=== PATIENT | male | born 1980 | race Caucasian/White ===

== ENCOUNTER 2019-07-29 22:09 | Emergency (ER) | payer MEDICAID ==
[~2019-07-29] VITALS: Ht 175.3 cm; Wt 97.5 kg
[2019-07-29 22:16] VITALS: Ht 175.3 cm; Wt 97.5 kg
[2019-07-29 23:18] LABS: BASOPHIL % 0.2 % (0-2); PLATELET COUNT 219 x10^3mcL (130-400); RED CELL DISTRIBUTION WIDTH 12.8 % (11.5-14.5)
[2019-07-29 23:29] LABS: CALCIUM 8.9 mg/dL (8.5-10.1); CARBON DIOXIDE 27.4 mmol/L (21-32); CHLORIDE SERUM 103 mmol/L (98-107); CREATININE SERUM 0.9 mg/dL (0.7-1.3); GFR1 > 60 mL/min; GLUCOSE SERUM 120 mg/dL (74-106); POTASSIUM SERUM 3.5 mmol/L (3.5-5.1); SODIUM SERUM 141 mmol/L (136-145)
[2019-07-29 23:34] LABS: ALBUMIN 4.2 g/dL (3.4-5.0); ALKALINE PHOSPHATASE 67 U/L (46-116); ALT/SGPT 53 U/L (16-63); AST/SGOT 32 U/L (15-37); BILIRUBIN TOTAL 0.9 mg/dL (0.20-1.00); TOTAL PROTEIN, SERUM 7.7 g/dL (6.4-8.2)
[2019-07-30 00:48] VITALS: BP 109/65
== END 2019-07-30 00:48 | disposition home or self-care (01) ==
LOC: ED 22:09
PROVIDERS: Emergency Medicine
DX: F41.9 Anxiety disorder, unspecified (principal); R07.89 Other chest pain
CPT/HCPCS: 36415